=== PATIENT | male | born 1990 | race Caucasian/White ===

== ENCOUNTER 2022-08-22 21:21 | Emergency (ER) | payer MEDICAID ==
[2022-08-22] MEDS ORDERED: Acetaminophen/oxyCODONE 325-5 MG Tab PO ONE (21:47)
[2022-08-22] MEDS ORDERED: Amoxicillin/Clavulanate K 875-125 MG Tab PO ONE (21:47)
== END 2022-08-22 22:01 | disposition home or self-care (01) ==
LOC: MW.ED 21:21
DX: K04.7 Periapical abscess without sinus (principal)
CPT/HCPCS: 99283; A9270

== ENCOUNTER 2024-08-31 12:30 | Emergency (ER) | payer MEDICAID | END 2024-08-31 13:46 | disposition home or self-care (01) | LOC: MW.ED 12:30 | DX: M25.511 Pain in right shoulder (principal); Z79.899 Other long term (current) drug therapy; Z75.3 Unavailability and inaccessibility of health-care facilities | CPT/HCPCS: 73030-26-RT; 73030-RT; 99282; 99283 ==